=== PATIENT | female | born 1975 | race Caucasian/White ===

== ENCOUNTER 2018-01-18 23:25 | Emergency (ER) | payer OTHER ==
[~2018-01-18] VITALS: Ht 157.5 cm; Wt 95.3 kg
[~2018-01-18 23:25] MED LIST: IBUPROFEN 800800 MG PO; LIPITOR10 MG PO; ULTRACET TABLE1 EACH PO; VERAPAMIL ER180 MG PO
[2018-01-18 23:54] LABS: URINE BILIRUBIN NEGATIVE (Negative); URINE BLOOD NEGATIVE (Negative); URINE CLARITY CLEAR; URINE GLUCOSE-RANDOM NEGATIVE (Negative); URINE KETONES NEGATIVE (Negative); URINE LEUKOCYTES TRACE (Negative); URINE NITRITE NEGATIVE (Negative); URINE PROTEIN NEGATIVE (Negative); URINE UROBILINOGEN 0.2 E.U./dl (0.2-1.0)
[2018-01-18 23:56] LABS: URINE COLOR YELLOW
[2018-01-19 00:04] LABS: AMP/METHAMP Negative (Negative); BARBITURATES Negative (Negative); BENZODIAZEPINES Negative (Negative); COCAINE Negative (Negative); METHADONE Negative (Negative); OPIATES Negative (Negative); PCP Negative (Negative); THC Negative (Negative)
[2018-01-19 00:07] LABS: ABSOLUTE BASOPHILS 0.1 thou/uL (0.0-0.2); ABSOLUTE MONOCYTES 0.6 thou/uL (0.0-1.2); ABSOLUTE NEUTROPHILS 5.2 thou/uL (1.6-8.1); BASOPHILS 0.8 %; EOSINOPHILS 0.4 %; HEMATOCRIT 37.4 % (37.0-47.0); HEMOGLOBIN 12.6 gm/dL (12.0-15.0); LYMPHOCYTES 25.1 %; MCH 28.5 pg (26.0-34.0); MCHC 33.8 g/dL (28.0-37.0); MCV 84.6 fL (80.0-100.0); MONOCYTES 7.5 %; MPV 7.8 fl. (7.2-11.1); NUCLEATED RBCS 0 /100WBC; PLATELET COUNT* 276 thou/uL (150-400); POLYS 66.2 %; RBC 4.43 mil/uL (4.20-5.00); RDW-CV 13.5 % (10.5-14.5); WBC 7.8 thou/uL (4.0-11.0)
[2018-01-19 00:11] LABS: BACTERIA >30 Many /HPF (None Seen); CASTS None Seen /LPF (None Seen); CRYSTALS None Seen /LPF (None Seen); MUCUS 0-3 Light strn/LPF (None Seen); SQUAMOUS 4-10 Moderate /LPF (0-3); TRANSITIONAL EPITHEL CELL 0-3 Few /LPF (None Seen); URINE RBC 0-2 Rare /HPF (0-2); URINE WBC 6-15 Few /HPF (0-5)
[2018-01-19 00:15] LABS: ANION GAP 11 mmol/L (7-16); BUN 8 mg/dL (7-18); CALCIUM 8.6 mg/dL (8.5-10.1); CHLORIDE 105 mmol/L (98-107); CO2 24 mmol/L (21-32); CREATININE 0.9 mg/dL (0.6-1.3); GLUCOSE 114 mg/dL (70-99); POTASSIUM 3.3 mmol/L (3.5-5.1); SODIUM 140 mmol/L (136-145)
[2018-01-19 00:21] LABS: ALBUMIN 3.7 g/dL (3.4-5.0); ALKALINE PHOSPHATASE 76 U/L (46-116); SGOT 16 U/L (15-37); SGPT 38 U/L (30-65); TOTAL BILIRUBIN 0.3 mg/dL (<0.1-1.0); TOTAL PROTEIN 7.4 g/dL (6.4-8.2); TROPONIN-I LEVEL <0.06 ng/mL (<0.06)
[2018-01-19] MEDS ORDERED: BACTRIM DS TAB1 EACH PO (00:25)
[2018-01-19 00:46] VITALS: BP 135/77
--- NOTE | 2018-01-19 16:50 | EKG ---
[place] [address] ELECTROCARDIOGRAM REPORT Name: HOMER BURR Room: [facility]#: [id number] Admission: 01/18/18 Attend Phys: Discharge: 01/19/18 Date of : 77 Report #: [id number] THIS REPORT FOR: //name// [facility] ED Test Date: 2018-01-18 Test Time: 23:32:34 Pat Name: HOMER BURR Department: Room: Gender: F Time Motion Analyst: SLIME : 1975 Requested By: Sindy Dixon Order Number: [id number] MD: Kenney Smith Measurements Intervals [place] Rate: 82 P: 66 DE: 122 QRS: 59 QRSD: 90 T: 19 QT: 389 QTc: 455 Interpretive Statements Sinus rhythm Borderline ST depression, diffuse leads Compared to ECG 09/20/2016 14:36:02 Sinus tachycardia no longer present Electronically Signed On 01-19-2018 16:50:26 CDT by Kenney Smith [email or web address] <ELECTRONICALLY SIGNED> By: Kenney Smith MD, [facility] 01/19/18 1650 31 31 Kenney Smith MD, FACC /EPI
== END 2018-01-19 00:48 | disposition home or self-care (01) ==
LOC: M.ERS 23:25
PROVIDERS: Physician Assistant
DX: R07.89 Other chest pain (principal); N39.0 Urinary tract infection, site not specified; F41.9 Anxiety disorder, unspecified; Z90.49 Acquired absence of other specified parts of digestive tract

== ENCOUNTER 2018-03-11 06:00 | Emergency (ER) | payer OTHER ==
[~2018-03-11] VITALS: Ht 157.5 cm; Wt 90.7 kg
[~2018-03-11 06:00] MED LIST changes: +BACTRIM DS TAB1 EACH PO
[2018-03-11] MEDS ORDERED: NOHOMEMEDICATIONS (06:09)
[2018-03-11 06:17] LABS: ABSOLUTE LYMPHOCYTES 1.4 thou/uL (0.8-5.3); ABSOLUTE MONOCYTES 0.6 thou/uL (0.0-1.2); ABSOLUTE NEUTROPHILS 4.6 thou/uL (1.6-8.1); BASOPHILS 0.6 %; EOSINOPHILS 0.3 %; HEMATOCRIT 38.8 % (37.0-47.0); HEMOGLOBIN 13.1 gm/dL (12.0-15.0); LYMPHOCYTES 21.6 %; MCH 28.5 pg (26.0-34.0); MCHC 33.8 g/dL (28.0-37.0); MCV 84.5 fL (80.0-100.0); MONOCYTES 8.3 %; MPV 7.7 fl. (7.2-11.1); NUCLEATED RBCS 0 /100WBC; PLATELET COUNT* 282 thou/uL (150-400); POLYS 69.2 %; RBC 4.59 mil/uL (4.20-5.00); RDW-CV 13.3 % (10.5-14.5); WBC 6.7 thou/uL (4.0-11.0)
[2018-03-11 06:30] LABS: ANION GAP 13 mmol/L (7-16); BUN 5 mg/dL (7-18); CALCIUM 9.1 mg/dL (8.5-10.1); CHLORIDE 104 mmol/L (98-107); CO2 26 mmol/L (21-32); GLUCOSE 106 mg/dL (70-99); POTASSIUM 3.5 mmol/L (3.5-5.1); SODIUM 143 mmol/L (136-145)
[2018-03-11 06:31] LABS: APTT 27.5 Seconds (25.0-31.3); PROTIME 10.2 Seconds (9.20-11.50)
[2018-03-11] MEDS ORDERED: XANAX1 MG PO (06:33)
[2018-03-11 06:41] LABS: ALKALINE PHOSPHATASE 69 U/L (46-116); CK-MB MASS 1.1 ng/mL (<0.5-3.6); LIPASE 97 U/L (73-393); MAGNESIUM 2.2 mg/dL (1.8-2.4); NT-PRO BRAIN NAT PEPTIDE 56 pg/mL (<300); SGOT 14 U/L (15-37); SGPT 26 U/L (30-65); TOTAL BILIRUBIN 0.4 mg/dL (<0.1-1.0); TOTAL PROTEIN 7.9 g/dL (6.4-8.2); TROPONIN-I LEVEL <0.06 ng/mL (<0.06)
[2018-03-11 07:02] VITALS: BP 137/92
--- NOTE | 2018-03-11 10:49 | EKG ---
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
== END 2018-03-11 07:02 | disposition home or self-care (01) ==
LOC: M.ERS 06:00
PROVIDERS: Family Medicine
DX: F41.9 Anxiety disorder, unspecified (principal); Z90.49 Acquired absence of other specified parts of digestive tract

== ENCOUNTER 2018-03-22 05:59 | Emergency (ER) | payer OTHER ==
[~2018-03-22] VITALS: Ht 157.5 cm; Wt 90.7 kg
[~2018-03-22 05:59] MED LIST changes: +NOHOMEMEDICATIONS; +XANAX1 MG PO
[2018-03-22 06:32] LABS: ABSOLUTE LYMPHOCYTES 1.2 thou/uL (0.8-5.3); ABSOLUTE MONOCYTES 0.4 thou/uL (0.0-1.2); ABSOLUTE NEUTROPHILS 4.9 thou/uL (1.6-8.1); BASOPHILS 0.7 %; EOSINOPHILS 0.4 %; HEMATOCRIT 38.3 % (37.0-47.0); HEMOGLOBIN 12.9 gm/dL (12.0-15.0); LYMPHOCYTES 18.5 %; MCH 28.6 pg (26.0-34.0); MCHC 33.7 g/dL (28.0-37.0); MONOCYTES 6.7 %; MPV 8.1 fl. (7.2-11.1); NUCLEATED RBCS 0 /100WBC; PLATELET COUNT* 269 thou/uL (150-400); POLYS 73.7 %; RDW-CV 13.2 % (10.5-14.5); WBC 6.7 thou/uL (4.0-11.0)
[2018-03-22 06:39] LABS: CALCIUM 8.8 mg/dL (8.5-10.1); CREATININE 0.9 mg/dL (0.6-1.3); POTASSIUM 3.8 mmol/L (3.5-5.1)
[2018-03-22 06:43] LABS: ALBUMIN 3.8 g/dL (3.4-5.0); TOTAL BILIRUBIN 0.5 mg/dL (<0.1-1.0); TOTAL PROTEIN 7.6 g/dL (6.4-8.2)
[2018-03-22 07:00] LABS: URINE BILIRUBIN NEGATIVE (Negative); URINE BLOOD NEGATIVE (Negative); URINE CLARITY CLEAR; URINE COLOR YELLOW; URINE GLUCOSE-RANDOM NEGATIVE (Negative); URINE KETONES NEGATIVE (Negative); URINE LEUKOCYTES-REFLEX 1+ (Negative); URINE NITRITE-REFLEX NEGATIVE (Negative); URINE PROTEIN NEGATIVE (Negative); URINE SPECIFIC GRAVITY 1.015 (1.005-1.030); URINE UROBILINOGEN 0.2 E.U./dl (0.2-1.0)
[2018-03-22 07:09] LABS: AMP/METHAMP Negative (Negative); BARBITURATES Negative (Negative); BENZODIAZEPINES Negative (Negative); COCAINE Negative (Negative); METHADONE Negative (Negative); OPIATES Negative (Negative); PCP Negative (Negative); THC Negative (Negative)
[2018-03-22 07:17] LABS: SQUAMOUS 4-10 Moderate /LPF (0-3); URINE RBC 0-2 Rare /HPF (0-2); URINE WBC-REFLEX 6-15 Few /HPF (0-5)
[2018-03-22 07:18] LABS: CASTS None Seen /LPF (None Seen); CRYSTALS None Seen /LPF (None Seen); MUCUS None Seen strn/LPF (None Seen)
[2018-03-22 08:15] VITALS: BP 144/79
--- NOTE | 2018-03-22 13:08 | EKG ---
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 : 1975 Requested By: Sindy Aceves Order Number: [id number] MD: Shar Gayle Measurements Intervals [place] Rate: 64 P: 43 AL: 107 QRS: 52 QRSD: 87 T: 30 QT: 406 QTc: 419 Interpretive Statements Sinus rhythm Short [place] interval Abnormal R-wave progression, early transition Compared to ECG 03/11/2018 06:11:17 No significant changes Electronically Signed On 03-22-2018 13:08:48 CDT by Shar Gayle [email or web address] <ELECTRONICALLY SIGNED> By: Shar Gayle MD, [facility] 03/22/18 1308 0609 0609 Shar Gayle MD, [facility] /EPI
== END 2018-03-22 08:29 | disposition home or self-care (01) ==
LOC: M.ERS 05:59
PROVIDERS: Personal Emergency Response Attendant
DX: F41.0 Panic disorder [episodic paroxysmal anxiety] (principal); Z90.49 Acquired absence of other specified parts of digestive tract

== ENCOUNTER 2019-01-07 13:55 | Observation (INO) | payer OTHER ==
[~2019-01-07] VITALS: Ht 157.5 cm; Wt 111.6 kg
[2019-01-07 14:05] VITALS: BP 143/97
[2019-01-07 14:36] LABS: ABSOLUTE EOSINOPHILS 0.1 thou/uL (0.0-0.7); ABSOLUTE LYMPHOCYTES 1.3 thou/uL (0.8-5.3); ABSOLUTE MONOCYTES 0.6 thou/uL (0.0-1.2); ABSOLUTE NEUTROPHILS 7.9 thou/uL (1.6-8.1); BASOPHILS 0.5 %; EOSINOPHILS 0.7 %; HEMATOCRIT 38.2 % (37.0-47.0); HEMOGLOBIN 12.5 gm/dL (12.0-15.0); LYMPHOCYTES 13.1 %; MCHC 32.7 g/dL (28.0-37.0); MCV 82.4 fL (80.0-100.0); MONOCYTES 6.2 %; MPV 8.5 fl. (7.2-11.1); NUCLEATED RBCS 0 /100WBC; PLATELET COUNT* 307 thou/uL (150-400); POLYS 79.5 %; RBC 4.64 mil/uL (4.20-5.00); WBC 9.9 thou/uL (4.0-11.0)
[2019-01-07 14:53] LABS: ALBUMIN 3.5 g/dL (3.4-5.0); CALCIUM 8.6 mg/dL (8.5-10.1); MAGNESIUM 1.9 mg/dL (1.8-2.4); POTASSIUM 3.3 mmol/L (3.5-5.1); TOTAL BILIRUBIN 0.2 mg/dL (<0.1-1.0); TOTAL PROTEIN 7.7 g/dL (6.4-8.2); TROPONIN-I LEVEL 0.11 ng/mL (<0.06)
[2019-01-07 16:34] VITALS: BP 143/88
--- NOTE | 2019-01-07 16:47 | EKG ---
[place] [address] ELECTROCARDIOGRAM REPORT Name: HOMER BURR Room: [address] IN [facility]#: [id number] Admission: 01/07/19 Attend Phys: Josh Brown MD Discharge: Date of : [birth year] Report #: [id number] THIS REPORT FOR: //name// [facility] Test Date: 2019-01-07 Test Time: 14:00:03 Pat Name: HOMER BURR Department: Room: [facility] Gender: F Rn Production: UNKNOWN : 1975 Requested By: Elier Reeves Order Number: [id number] MD: Kenney Smith Measurements Intervals [place] Rate: 187 P: 0 ND: QRS: 66 QRSD: 76 T: -82 QT: 244 QTc: 431 Interpretive Statements Supraventricular tachycardia Repolarization abnormality, prob rate related Baseline wander in lead(s) V6 Compared to ECG 03/22/2018 06:09:22 Sinus rhythm no longer present Electronically Signed On 01-07-2019 16:47:35 MULTIPLE RESAW OPERATOR by Kenney Smith [email or web address] <ELECTRONICALLY SIGNED> By: Kenney Smith MD, FACC 01/07/19 1647 1400 1400 Kenney Smith MD, [facility] /EPI
--- NOTE | 2019-01-07 16:49 | EKG ---
[place] [address] ELECTROCARDIOGRAM REPORT Name: HOMER BURR Room: [address] ADM IN [facility].#: [id number] Admission: 01/07/19 Attend Phys: Josh Brown MD Discharge: Date of : [birth year] Report #: [id number] THIS REPORT FOR: //name// [facility] Test Date: 2019-01-07 Test Time: 14:29:23 Pat Name: HOMER BURR Department: Room: [facility] Gender: F Sap Specialist: DAISY : 1975 Requested By: Elier Reeves Order Number: [id number] MD: Kenney Smith Measurements Intervals [place] Rate: 99 P: 13 [place]: 123 QRS: 54 QRSD: 85 T: 15 QT: 335 QTc: 430 Interpretive Statements Sinus rhythm with short pr interval Minimal ST depression, anterolateral leads Compared to ECG 03/22/2018 06:09:22 ST (T wave) deviation less prominent rate slowes Electronically Signed On 01-07-2019 16:49:20 AVIATION OPERATIONS SPECIALIST by Kenney Smith [email or web address] <ELECTRONICALLY SIGNED> By: Kenney Smith MD, [facility] 01/07/19 1649 1429 1429 Kenney Smith MD, [facility] /EPI
[2019-01-07 17:00] VITALS: BP 138/87
[2019-01-07 20:00] VITALS: BP 115/65
[2019-01-08] VITALS: BP 125/78
[2019-01-08 04:00] VITALS: BP 127/83
[2019-01-08 04:54] LABS: ANION GAP 8 mmol/L (7-16); BUN 8 mg/dL (7-18); CALCIUM 8.6 mg/dL (8.5-10.1); CHLORIDE 107 mmol/L (98-107); CO2 25 mmol/L (21-32); CREATININE 0.8 mg/dL (0.6-1.3); GLUCOSE 90 mg/dL (70-99); MAGNESIUM 2.2 mg/dL (1.8-2.4); POTASSIUM 4.2 mmol/L (3.5-5.1); SODIUM 140 mmol/L (136-145)
[2019-01-08 05:34] LABS: CHOLESTEROL 180 mg/dL (<200); HDL CHOLESTEROL 51 mg/dL (>40); LDL CHOLESTEROL 118 mg/dL (<100); SERUM ASSESSMENT Clear; TC:HDL 3.5 Ratio (Not establshd); TRIGLYCERIDE 57 mg/dL (<150); VLDL 11 mg/dL (<40)
[2019-01-08 08:00] VITALS: BP 141/95
[2019-01-08] MEDS ORDERED: ASPIR 8181 MG PO (08:33)
[2019-01-08] MEDS ORDERED: LIPITOR10 MG PO (08:33)
--- NOTE | 2019-01-08 11:19 | EKG ---
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
--- NOTE | 2019-01-08 11:32 | EXE ---
[place] [address] STRESS ECHOCARDIOGRAM Name: HOMER BURR Room: [address]#: [id number] Admission: 01/07/19 Attend Phys: Josh Brown, Discharge: Date of : [birth year] Date of Service: 01/08/19 1132 Report #: [id number] THIS REPORT FOR: //name// APPROVED REPORT Study performed: 01/08/2019 10:50:31 Exam: Stress Echocardiogram Indication: Chest pain , Dyspnea , Palpitations, SVT Patient Location: In-Patient Stress Nurse: Becky Dolan RN Room #: [facility] Supervising Physician: Oniel King MD Status: routine Ht: 5 ft 2 in HR: 82 bpm BP: 108/79 mmHg Rhythm: NSR Medical History Medical History: SVT Medications: Flecainide, Atorvastatin, ASA Allergies: No known drug allergies Procedure The patient underwent an Exercise Stress Test using the Hermelindo Protocol. Blood pressure, heart rate, and EKG were monitored. An Echocardiogram was performed by carpet cleaning technician in four stages in quad fashion. At peak stress, four selected images were obtained and placed side by side with resting images for comparison. Stress Test Details Stress Test: Exercise stress testing was performed using a Hermelindo protocol. HR Resting HR: 82 bpm Max Heart Rate (APMHR): 178 bpm Max HR Achieved: 171 bpm Target HR (85% APMHR): 151 bpm % of APMHR: 96 Recovery HR: 103 bpm HR response to stress: Normal HR response to stress BP Resting BP: 108/79 mmHg Max BP: 191/57 mmHg Recovery BP: 138/62 [place] [address] STRESS ECHOCARDIOGRAM Name: HOMER BURR Room: [address]#: [id number] Admission: 01/07/19 Attend Phys: Josh Brown, Discharge: Date of : 77 Date of Service: 01/08/19 1132 Report #: [id number] BP response to stress: Normal blood pressure response to stress. ECG Resting ECG: Sinus Rhythm Stress ECG: Sinus Tachycardia ST Change: None Arrhythmia: None Recovery ECG: Sinus Rhythm Recovery ST Change: None Recovery Arrhythmia: None Clinical Reason for Termination: Maximal effort Exercise duration: 5 min sec Highest Stage Achieved: Stage 2: 2.5 mph at 12% grade. Exercise capacity: 7.02 METs The patient tolerated standard Hermelindo protocol exercise without significant symptoms. Stress ECG Conclusion The baseline 12-lead EKG shows sinus rhythm with no significant ST or T-wave abnormalities. EKGs during and post exercise showed sinus rhythm and sinus tachycardia with no significant ST or T wave changes when compared to baseline. There were no stress-induced arrhythmias. Pre-Stress Echo The resting Echocardiogram showed normal left ventricular contractility with an estimated Ejection Fraction of about 60-65%. Post-Stress Echo The stress Echocardiogram showed normal left ventricular contractility with an estimated Ejection Fraction of about >70%. Conclusion Clinical Response: Non-ischemic Exercise Capacity: Average Stress ECG Response: Non-ischemic Stress Echo Images: [place] [address] STRESS ECHOCARDIOGRAM Name: HOMER BURR Room: [address]#: [id number] Admission: 01/07/19 Attend Phys: Josh Brown, Discharge: Date of : [birth year] Date of Service: 01/08/19 1132 Report #: [id number] Other Information Study Quality: Good <ELECTRONICALLY SIGNED> By: Oniel King MD, FACC 01/08/191131 31 31 Oniel King MD, FACC /INF
[2019-01-08 12:13] VITALS: BP 115/71
[2019-01-08 15:32] VITALS: BP 115/71
== END 2019-01-08 16:00 | disposition home or self-care (01) ==
LOC: M.ERS 13:55 → M.2W 15:20 → M.TBA-ER 15:20 → M.2W 15:20
PROVIDERS: Emergency Medicine Emergency Medical Services; ADMIT Internal Medicine
DX: I47.1 Supraventricular tachycardia (principal); I20.9 Angina pectoris, unspecified; F41.1 Generalized anxiety disorder; E87.6 Hypokalemia; E78.5 Hyperlipidemia, unspecified; R79.89 Other specified abnormal findings of blood chemistry; Z79.899 Other long term (current) drug therapy

== ENCOUNTER 2019-09-16 13:32 | Emergency (ER) | payer OTHER ==
[~2019-09-16] VITALS: Ht 154.9 cm; Wt 91.2 kg
[~2019-09-16 13:32] MED LIST changes: +ASPIR 8181 MG PO
[2019-09-16 13:51] LABS: ABSOLUTE EOSINOPHILS 0.1 thou/uL (0.0-0.7); ABSOLUTE LYMPHOCYTES 1.5 thou/uL (0.8-5.3); ABSOLUTE MONOCYTES 0.6 thou/uL (0.0-1.2); ABSOLUTE NEUTROPHILS 4.7 thou/uL (1.6-8.1); BASOPHILS 0.7 %; EOSINOPHILS 1.8 %; HEMATOCRIT 36.5 % (37.0-47.0); HEMOGLOBIN 12.2 gm/dL (12.0-15.0); MCH 26.9 pg (26.0-34.0); MCHC 33.5 g/dL (28.0-37.0); MCV 80.2 fL (80.0-100.0); MONOCYTES 8.3 %; MPV 7.7 fl. (7.2-11.1); NUCLEATED RBCS 0 /100WBC; PLATELET COUNT* 315 thou/uL (150-400); POLYS 67.2 %; RBC 4.55 mil/uL (4.20-5.00); RDW-CV 14.5 % (10.5-14.5)
[2019-09-16 14:00] LABS: CALCIUM 8.5 mg/dL (8.5-10.1); CREATININE 1.1 mg/dL (0.6-1.3); POTASSIUM 3.4 mmol/L (3.5-5.1)
[2019-09-16 14:01] LABS: APTT 28.9 Seconds (25.0-31.3); PROTIME 10.1 Seconds (9.20-11.50)
[2019-09-16 14:13] LABS: ALBUMIN 3.4 g/dL (3.4-5.0); MAGNESIUM 1.9 mg/dL (1.8-2.4); TOTAL BILIRUBIN 0.2 mg/dL (<0.1-1.0); TOTAL PROTEIN 7.7 g/dL (6.4-8.2)
[2019-09-16 14:38] VITALS: BP 130/83
--- NOTE | 2019-09-16 15:42 | EKG ---
[place] [address] ELECTROCARDIOGRAM REPORT Name: HOMER BURR Room: [facility]#: [id number] Admission: 09/16/19 Attend Phys: Discharge: 09/16/19 Date of : [birth year] Report #: [id number] THIS REPORT FOR: //name// [facility] ED Test Date: 2019-09-16 Test Time: 13:37:25 Pat Name: HOMER BURR Department: Room: Gender: F Glazier Helper: : 1975 Requested By: Robert Ortiz Order Number: [id number] MD: Juan Lepe Measurements Intervals [place] Rate: 190 P: 0 [place]: QRS: 68 QRSD: 74 T: -59 QT: 246 QTc: 438 Interpretive Statements Supraventricular tachycardia Probable LVH with secondary repol abnrm ST depression, probably rate related Compared to ECG 01/07/2019 19:48:30 ST (T wave) deviation now present Sinus rhythm no longer present Short [place] interval no longer present Electronically Signed On 09-16-2019 15:42:22 MARKETING INFORMATION ANALYST by Juan Lepe [email or web address] <ELECTRONICALLY SIGNED> By: Juan Lepe MD, FAC 09/16/19 1542 1337 1337 Juan Lepe MD, [facility] /EPI
--- NOTE | 2019-09-16 15:43 | EKG ---
[place] [address] ELECTROCARDIOGRAM REPORT Name: HOMER BURR Room: [facility]#: [id number] Admission: 09/16/19 Attend Phys: Discharge: 09/16/19 Date of : [birth year] Report #: [id number] THIS REPORT FOR: //name// [facility] ED Test Date: 2019-09-16 Test Time: 13:45:58 Pat Name: HOMER BURR Department: Room: Gender: F Computer Typesetter: : 1975 Requested By: Robert Ortiz Order Number: [id number] Reading MD: Juan Lepe Measurements Intervals [place] Rate: 100 P: 69 ME: 123 QRS: 67 QRSD: 86 T: 14 QT: 334 QTc: 431 Interpretive Statements Sinus tachycardia Probable left atrial enlargement Borderline ST depression, diffuse leads Electronically Signed On 09-16-2019 15:43:15 POTTERY STRIPER by Juan Lepe [email or web address] <ELECTRONICALLY SIGNED> By: Juan Lepe MD, [facility] 09/16/19 1543 1345 1345 Juan Lepe MD, FACC /EPI
== END 2019-09-16 14:38 | disposition home or self-care (01) ==
LOC: M.ERS 13:32
PROVIDERS: Family Medicine
DX: I47.1 Supraventricular tachycardia (principal); F41.9 Anxiety disorder, unspecified; Z90.49 Acquired absence of other specified parts of digestive tract